=== PATIENT | female | born 1960 | race African-American/Black ===

== ENCOUNTER 2022-02-04 05:33 | Inpatient (IN) ==
[2022-02-04] MEDS ORDERED: LIDOCAINE 1% 5 ML VIAL ONE (06:07)
[2022-02-04] MEDS ORDERED: ROPIVACAINE 0.5% 30 ML VIAL ONE (06:07)
[2022-02-04] MEDS ORDERED: DEXAMETHASONE 4 MG/1 ML VIAL ONE (06:07)
[2022-02-04] MEDS ORDERED: MIDAZOLAM 2 MG/2 ML VIAL ONE (06:08)
[2022-02-04] MEDS ORDERED: FAMOTIDINE 20 MG TABLET ONE (06:11)
[2022-02-04] MEDS ORDERED: FAMOTIDINE 20 MG TABLET PO ONE (06:22)
[2022-02-04] MEDS ORDERED: LACTATED RINGERS 1,000 ML IV SCH ×2 (06:30)
[2022-02-04] MEDS ORDERED: VANCOMYCIN INJ 1,000 MG in SODIUM CHLORIDE 0.9% 250 ML IV ONE (06:30)
[2022-02-04] MEDS ORDERED: PHENYLEPHRINE 1 MG/10 ML SYRINGE IV ONE (06:35)
[2022-02-04 06:39] LABS: PT Patient Result 10.9 SECS (10.1-12.1); Partial Thromboplastin Time 29.5 SECS (23.7-32.9)
[2022-02-04] MEDS ORDERED: LACTULOSE 20 GM/30 ML UDCUP PO PRN (07:15)
[2022-02-04] MEDS ORDERED: TEMAZEPAM 7.5 MG CAPSULE PO PRN (07:15)
[2022-02-04] MEDS ORDERED: BISACODYL 10 MG SUPP RECTAL PRN (07:15)
[2022-02-04] MEDS ORDERED: PROMETHAZINE 25 MG/1 ML VIAL IM PRN (07:15)
[2022-02-04] MEDS ORDERED: diphenhydrAMINE CAP 25 MG CAPSULE PO PRN (07:15)
[2022-02-04] MEDS ORDERED: MAGNESIUM HYDROXIDE SUSP 30 ML UDCUP PO PRN (07:15)
[2022-02-04] MEDS ORDERED: NON-FORMULARY MEDICATION (Peppermint Oil [Ibgard] 90 mg Capsule,Delayed,Extend.Release) PO PRN (07:18)
[2022-02-04] MEDS ORDERED: HydrOXYzine PAMOATE 25 MG CAPSULE PO PRN (07:18)
[2022-02-04] MEDS ORDERED: buprenorphine HCL 0.3 MG/ML VIAL ONE (07:20)
[2022-02-04] MEDS ORDERED: propofoL 200 MG/20 ML VIAL IV ONE (08:13)
[2022-02-04] MEDS ORDERED: SODIUM CHLORIDE 0.9% 250 ML IV ONE (08:13)
[2022-02-04] MEDS ORDERED: TRANEXAMIC ACID 1,000 MG/10 ML VIAL ONE (08:19)
[2022-02-04] MEDS: ONDANSETRON 4 MG/2 ML VIAL IV PRN (09:35)
[2022-02-04] MEDS: OMEGA 3 ACID ETHYL ESTERS 1 GM CAPSULE PO SCH (12:24)
[2022-02-04] MEDS: sitaGLIPtin 100 MG TABLET PO SCH (12:24)
[2022-02-04] MEDS: CHOLECALCIFEROL 1,000 UNIT TABLET PO SCH (12:25)
[2022-02-04] MEDS: ASPIRIN EC 81 MG TABLET PO SCH (12:25)
[2022-02-04] MEDS: LISINOPRIL/HCTZ 20-25 MG TABLET PO SCH (12:25)
[2022-02-04] MEDS: PARoxetine 20 MG TABLET PO SCH (12:25)
[2022-02-04] MEDS: DOCUSATE SODIUM 100 MG CAPSULE PO SCH ×2 (12:25→20:32)
[2022-02-04] MEDS: ceFAZolin 2,000 MG/50 ML DUPLEX IV SCH ×2 (14:11→21:35)
[2022-02-04] MEDS: FONDAPARINUX 2.5 MG/0.5 ML SYRINGE SUBCUT SCH (17:47)
[2022-02-04] MEDS: glipiZIDE 10 MG TABLET PO SCH (17:47)
[2022-02-04] MEDS: ATORVASTATIN 40 MG TABLET PO SCH (20:32)
[2022-02-04] MEDS: MORPHINE 2 MG/1 ML SYRINGE IV PRN (23:26)
[2022-02-05] MEDS: MORPHINE 2 MG/1 ML SYRINGE IV PRN ×3 (05:12→16:35)
[2022-02-05 05:32] LABS: Basophils # 0.1 10*3/uL (0.0-0.2); Basophils % 0.4 % (0.0-0.8); Eosinophils % 0.1 % (0.00-10.9); Hematocrit 32.8 VOL% (35.7-47.0); Hemoglobin 10.5 GM/DL (12.0-16.0); Immature Granulocytes % 0.7 %; Immature Granulocytes Absolute 0.08 #; Lymphocytes # 1.8 10*3/uL (1.4-4.0); Lymphocytes % 15.8 % (21.3-54.2); Mean Corpuscular Volume 78.7 FL (87-102); Mean Platelet Volume 10.6 FL (9.6-12.0); Monocytes # 1.1 10*3/uL (0.11-0.8); Monocytes % 9.1 % (1.7-12.7); Neutrophils % 73.9 % (38.7-73.9); Platelet Count 210 T/CUMM (130-400); Red Blood Count 4.17 MC/CUMM (3.8-5.5); White Blood Count 11.5 T/CUMM (4-12)
[2022-02-05 05:54] LABS: Osmolality,Calculated 277.8 MOS/KG (273-304); Potassium 3.5 MMOL/L (3.5-5.1)
[2022-02-05] MEDS ORDERED: ACETAMINOPHEN 325 MG TABLET PO PRN (07:16)
[2022-02-05] MEDS: glipiZIDE 10 MG TABLET PO SCH ×2 (09:53→22:53)
[2022-02-05] MEDS: OMEGA 3 ACID ETHYL ESTERS 1 GM CAPSULE PO SCH (09:54)
[2022-02-05] MEDS: DOCUSATE SODIUM 100 MG CAPSULE PO SCH ×2 (09:54→20:07)
[2022-02-05] MEDS: sitaGLIPtin 100 MG TABLET PO SCH (09:54)
[2022-02-05] MEDS: PARoxetine 20 MG TABLET PO SCH (09:54)
[2022-02-05] MEDS: LISINOPRIL/HCTZ 20-25 MG TABLET PO SCH (09:54)
[2022-02-05] MEDS: ASPIRIN EC 81 MG TABLET PO SCH (09:54)
[2022-02-05] MEDS: ONDANSETRON 4 MG/2 ML VIAL IV PRN (15:41)
[2022-02-05] MEDS: FONDAPARINUX 2.5 MG/0.5 ML SYRINGE SUBCUT SCH (20:07)
[2022-02-05] MEDS: ATORVASTATIN 40 MG TABLET PO SCH (20:07)
[2022-02-06 08:24] VITALS: BP 130/72
[2022-02-06] MEDS: glipiZIDE 10 MG TABLET PO SCH (09:42)
[2022-02-06] MEDS: CHOLECALCIFEROL 1,000 UNIT TABLET PO SCH (09:42)
[2022-02-06] MEDS: OMEGA 3 ACID ETHYL ESTERS 1 GM CAPSULE PO SCH (09:42)
[2022-02-06] MEDS: DOCUSATE SODIUM 100 MG CAPSULE PO SCH (09:42)
[2022-02-06] MEDS: PARoxetine 20 MG TABLET PO SCH (09:43)
[2022-02-06] MEDS: ASPIRIN EC 81 MG TABLET PO SCH (09:43)
[2022-02-06] MEDS: sitaGLIPtin 100 MG TABLET PO SCH (09:43)
[2022-02-06] MEDS: LISINOPRIL/HCTZ 20-25 MG TABLET PO SCH (09:46)
== END 2022-02-06 11:49 | disposition home health service (06) | DRG 470 ==
LOC: N.OR 05:33 → N.SDSINP 05:38 → N.3E 09:55
PROVIDERS: ADMIT Orthopaedic Surgery; ATTEND Orthopaedic Surgery